=== PATIENT | female | born 1935 | race Caucasian/White ===

== ENCOUNTER 2018-06-13 19:42 | Inpatient (IN) | payer OTHER, MEDICAID ==
[~2018-06-13] VITALS: Ht 147.3 cm; Wt 53.1 kg
[2018-06-13 19:56] VITALS: BP_SYST 154
[2018-06-13] MEDS ORDERED: ACETAMINOPHEN 500 MG TABLET PO ONE (21:45)
[2018-06-13] MEDS ORDERED: NACL 0.9% 1,000 ML IV ONE (22:15)
[2018-06-13] MEDS ORDERED: ONDANSETRON HCL 4 MG/2 ML VIAL IVP ONE (22:15)
[2018-06-13 22:46] LABS: BASOPHILS % (AUTO) 0.7 % (0.0-2.0); EOSINOPHILS # (AUTO) 0.2 K/uL (0.0-0.4); EOSINOPHILS % (AUTO) 2.8 % (0.0-4.0); HEMATOCRIT 33.9 % (36-48); HEMOGLOBIN 11.7 g/dL (12.0-16.0); LYMPHOCYTES # (AUTO) 1.2 K/uL (1.0-5.5); LYMPHOCYTES % (AUTO) 20.5 % (20.5-51.5); MEAN CORPUSCULAR HEMOGLOBIN 35 pg (27-31); MEAN CORPUSCULAR HGB CONC 34 % (32-36); MEAN CORPUSCULAR VOLUME 101 fL (79.0-98.0); MONOCYTES # (AUTO) 0.5 K/uL (0.0-1.0); NEUTROPHILS # (AUTO) 4.1 K/uL (1.8-7.7); PLATELET COUNT (AUTO) 235 K/uL (130-430); RED BLOOD CELL COUNT(AUTO) 3.37 MIL/uL (4.2-6.2); RED CELL DISTRIBUTION WIDTH 13.1 % (9.0-15.0)
[2018-06-13 22:56] LABS: BILIRUBIN,URINE NEGATIVE (NEGATIVE); BLOOD, URINE NEGATIVE (NEGATIVE); CLARITY/URINE CLEAR (CLEAR); COLOR,URINE YELLOW (YELLOW); GLUCOSE,URINE NEGATIVE (NEGATIVE); KETONES,URINE NEGATIVE (NEGATIVE); LEUKOCYTE ESTERASE ,URINE NEGATIVE (NEGATIVE); NITRITE, URINE NEGATIVE (NEGATIVE); PROTEIN URINE NEGATIVE (NEGATIVE); UROBILINOGEN,URINE 0.2 (0.2-1.0)
[2018-06-13 23:13] LABS: ANION GAP 8 (5-15); CHLORIDE 100 mmol/L (98-107); CREATININE 0.68 mg/dL (0.55-1.30); GLUCOSE 107 mg/dL (70-99); POTASSIUM 3.9 mmol/L (3.5-5.1); SODIUM SERUM 133 mmol/L (136-145); UREA NITROGEN, BLOOD 19 mg/dL (8-21)
[2018-06-13 23:18] LABS: ALANINE AMINOTRANSFERASE 16 U/L (12-78); ALBUMIN 3.6 g/dL (3.4-4.8); ASPARTATE AMINOTRANSFERASE 22 U/L (10-37); TOTAL BILIRUBIN 0.2 mg/dL (0.0-1.0)
[2018-06-14 00:45] VITALS: BP_SYST 146
[2018-06-14] MEDS ORDERED: SENN8.6T19 PO (01:09)
[2018-06-14] MEDS ORDERED: ASPI-1153 PO (01:09)
[2018-06-14] MEDS ORDERED: VITD2000 PO (01:09)
[2018-06-14] MEDS ORDERED: CARB1TAB10 PO (01:09)
[2018-06-14] MEDS ORDERED: PRO40 PO (01:09)
[2018-06-14] MEDS ORDERED: ESCI10TA PO (01:09)
[2018-06-14 08:01] VITALS: BP_SYST 148
[2018-06-14] MEDS: levETIRAcetam 500 MG TABLET PO SCH ×2 (08:10→20:11)
[2018-06-14] MEDS: ACETAMINOPHEN 500 MG TABLET PO PRN ×2 (08:31→20:10)
[2018-06-14 11:37] VITALS: BP_SYST 137
[2018-06-14 15:22] VITALS: BP_SYST 135
[2018-06-14] MEDS ORDERED: traMADol HCL HCL 50 MG TABLET (ULTRAM) PO PRN (15:30)
[2018-06-14 20:00] VITALS: BP_SYST 133
[2018-06-14] MEDS: CHOLECALCIFEROL (VITAMIN D3) 2,000 UNIT TABLET PO SCH (20:13)
[2018-06-14] MEDS: SENNOSIDES 8.6 MG TABLET PO SCH (20:13)
[2018-06-14] MEDS: CARBIDOPA/LEVODOPA 25/100 MG TABLET PO SCH (20:13)
[2018-06-14] MEDS: TEMAZEPAM 15 MG CAPSULE PO SCH (20:16)
[2018-06-15 00:10] VITALS: BP_SYST 123
[2018-06-15] MEDS: PANTOPRAZOLE SODIUM 40 MG TAB PO SCH (06:01)
[2018-06-15 08:00] VITALS: BP_SYST 139
[2018-06-15] MEDS: ACETAMINOPHEN 500 MG TABLET PO PRN (08:52)
[2018-06-15] MEDS: DOCUSATE SODIUM 100 MG CAPSULE PO SCH (08:53)
[2018-06-15] MEDS: CHOLECALCIFEROL (VITAMIN D3) 2,000 UNIT TABLET PO SCH ×2 (08:53→20:17)
[2018-06-15] MEDS: CITALOPRAM HYDROBROMIDE 20 MG TABLET PO SCH (08:53)
[2018-06-15] MEDS: levETIRAcetam 500 MG TABLET PO SCH ×2 (08:53→17:56)
[2018-06-15] MEDS: CARBIDOPA/LEVODOPA 25/100 MG TABLET PO SCH ×3 (08:53→20:17)
[2018-06-15 11:32] VITALS: BP_SYST 107
[2018-06-15 15:15] VITALS: BP_SYST 95
[2018-06-15] MEDS ORDERED: ACETAMINOPHEN 500 MG TABLET PO PRN (15:45)
[2018-06-15 20:00] VITALS: BP_SYST 127
[2018-06-15] MEDS: SENNOSIDES 8.6 MG TABLET PO SCH (20:17)
[2018-06-15] MEDS: TEMAZEPAM 15 MG CAPSULE PO SCH (20:22)
[2018-06-15] MEDS ORDERED: SENNOSIDES 8.6 MG TABLET PO SCH (21:00)
[2018-06-15] MEDS ORDERED: CITALOPRAM HYDROBROMIDE 20 MG TABLET PO SCH (21:00)
[2018-06-16 00:42] VITALS: BP_SYST 122
[2018-06-16] MEDS: PANTOPRAZOLE SODIUM 40 MG TAB PO SCH (06:34)
[2018-06-16] MEDS: CARBIDOPA/LEVODOPA 25/100 MG TABLET PO SCH ×4 (06:34→17:36)
[2018-06-16 08:00] VITALS: BP_SYST 136
[2018-06-16] MEDS: ASPIRIN 81 MG TAB.CHEW PO SCH (08:14)
[2018-06-16] MEDS: CITALOPRAM HYDROBROMIDE 20 MG TABLET PO SCH (08:15)
[2018-06-16] MEDS: CHOLECALCIFEROL (VITAMIN D3) 2,000 UNIT TABLET PO SCH ×2 (08:15→20:28)
[2018-06-16] MEDS: DOCUSATE SODIUM 100 MG CAPSULE PO SCH (08:15)
[2018-06-16] MEDS ORDERED: levETIRAcetam 500 MG TABLET PO SCH (09:00)
[2018-06-16 11:59] VITALS: BP_SYST 107
[2018-06-16] MEDS ORDERED: LORazepam 2 MG/ML VIAL IVP PRN (13:00)
[2018-06-16 16:13] VITALS: BP_SYST 153
[2018-06-16] MEDS: PEG 400/HYPROMELLOSE/GLYCERIN 15 ML DROPS BOTH EYES SCH ×2 (16:13→20:28)
[2018-06-16] MEDS: levETIRAcetam 500 MG TABLET PO SCH (17:36)
[2018-06-16] MEDS: TEMAZEPAM 15 MG CAPSULE PO SCH (20:28)
[2018-06-16] MEDS: SENNOSIDES 8.6 MG TABLET PO SCH (20:29)
[2018-06-16 20:30] VITALS: BP_SYST 109
[2018-06-16] MEDS ORDERED: CITALOPRAM HYDROBROMIDE 20 MG TABLET PO SCH (21:00)
[2018-06-17 00:35] VITALS: BP_SYST 126
[2018-06-17] MEDS: PANTOPRAZOLE SODIUM 40 MG TAB PO SCH (06:07)
[2018-06-17] MEDS: CARBIDOPA/LEVODOPA 25/100 MG TABLET PO SCH ×4 (07:26→17:47)
[2018-06-17 08:00] VITALS: BP_SYST 112
[2018-06-17] MEDS: LEVETIRACETAM 100 MG/ML PO SCH ×2 (09:00→10:29)
[2018-06-17] MEDS: DOCUSATE SODIUM 100 MG CAPSULE PO SCH ×2 (09:00→09:12)
[2018-06-17] MEDS: CHOLECALCIFEROL (VITAMIN D3) 2,000 UNIT TABLET PO SCH (09:12)
[2018-06-17] MEDS: ASPIRIN 81 MG TAB.CHEW PO SCH (09:12)
[2018-06-17] MEDS: PEG 400/HYPROMELLOSE/GLYCERIN 15 ML DROPS BOTH EYES SCH ×2 (09:13→15:08)
[2018-06-17 12:13] VITALS: BP_SYST 122
[2018-06-17 15:56] VITALS: BP_SYST 122
[2018-06-17 16:34] VITALS: BP_SYST 122
[2018-06-17] MEDS: levETIRAcetam 500 MG TABLET PO SCH (17:47)
[2018-06-17] MEDS ORDERED: CITALOPRAM HYDROBROMIDE 20 MG TABLET PO SCH (21:00)
== END 2018-06-17 18:09 | DRG 605 ==
LOC: SED 19:42 → STU 23:48 → SMU 06-14 15:27
PROVIDERS: ADMIT Family Medicine; ATTEND Family Medicine
DX: S00.03XA Contusion of scalp, initial encounter (principal); S49.91XA Unspecified injury of right shoulder and upper arm, initial encounter; M62.81 Muscle weakness (generalized); G30.9 Alzheimer's disease, unspecified; G20 Parkinson's disease; Z66 Do not resuscitate; Z51.5 Encounter for palliative care; F02.80 Dementia in other diseases classified elsewhere, unspecified severity, without behavioral disturbance, psychotic disturbance, mood disturbance, and anxiety; G40.909 Epilepsy, unspecified, not intractable, without status epilepticus; R42 Dizziness and giddiness; R47.81 Slurred speech; R29.6 Repeated falls; R20.0 Anesthesia of skin; W18.39XA Other fall on same level, initial encounter; Y93.89 Activity, other specified; Y92.89 Other specified places as the place of occurrence of the external cause; Y99.8 Other external cause status; Z86.73 Personal history of transient ischemic attack (TIA), and cerebral infarction without residual deficits; Z88.5 Allergy status to narcotic agent
CPT/HCPCS: 36415; 70450-TC; 73030; 80053; 81003; 83605; 84484; 85025; 87040-TC; 93880; 95816; 96360; 97110-GP; 97116-GP; 97530-GP; 99285; J7030

== ENCOUNTER 2020-01-11 16:33 | Outpatient (CLI) | payer OTHER, MEDICAID ==
[~2020-01-11 16:33] MED LIST: ASPI-1153 PO; CARB1TAB10 PO; ESCI10TA PO; PRO40 PO; SENN8.6T19 PO; VITD2000 PO
== END 2020-01-11 20:24 | disposition home or self-care (01) ==
LOC: SRD 16:33
PROVIDERS: ATTEND Internal Medicine
DX: Z01.818 Encounter for other preprocedural examination (principal); M47.814 Spondylosis without myelopathy or radiculopathy, thoracic region; M81.0 Age-related osteoporosis without current pathological fracture; R05 Cough
CPT/HCPCS: 71046-TC